=== PATIENT | male | born 1985 | race Caucasian/White ===

== ENCOUNTER 2017-01-26 19:41 | Emergency (ER) | payer OTHER ==
[~2017-01-26] VITALS: Ht 177.8 cm; Wt 95.5 kg
[~2017-01-26 19:41] MED LIST: LEVOTHYROXINE0.2 MG PO; OMEPRAZOLE40 MG PO; SYNTHROID0.025 MG PO
[2017-01-26] MEDS ORDERED: EFFEXOR XR150 M1 PO (20:13)
[2017-01-26] MEDS ORDERED: ADDERALL 20 MG20 MG PO (20:14)
[2017-01-26] MEDS ORDERED: RESTORIL15 MG PO (20:14)
[2017-01-26] MEDS ORDERED: PENICILLIN-VK500 M1 PO (20:38)
[2017-01-26] MEDS ORDERED: NORCO 325 MG-51 TA1 PO (20:38)
[2017-01-26 20:52] VITALS: BP 140/87
== END 2017-01-26 20:52 | disposition home or self-care (01) ==
LOC: ED 19:41
DX: K03.81 Cracked tooth (principal); E11.9 Type 2 diabetes mellitus without complications; E03.9 Hypothyroidism, unspecified